=== PATIENT | female | born 1980 | race African-American/Black ===

== ENCOUNTER → 2017-06-26 | Outpatient (CLI) | payer BC, OTHER ==
--- NOTE | 2017-06-26 08:44 | XR ---
EXAMINATION TYPE: XR chest 2V DATE OF EXAM: 06/26/2017 COMPARISON: 06/24/2013 HISTORY: Chest pain TECHNIQUE: Frontal and lateral views of the chest are obtained. FINDINGS: There is no focal air space opacity. No evidence for pneumothorax. No pleural effusion. The cardiac silhouette size is within normal limits. The osseous structures are grossly intact. IMPRESSION: 1. No acute cardiopulmonary process.
[2017-06-26 09:13] LABS: HCT 36.5 % (34.0-46.0); HGB 11.7 gm/dL (11.4-16.0); Hypochromasia Slight; MCH 28.1 pg (25.0-35.0); MCV 87.7 fL (80.0-100.0); Mean Platelet Volume 7.9; Platelet Count 293 k/uL (150-450); RBC 4.17 m/uL (3.80-5.40); RDW 13.7 % (11.5-15.5); WBC 5.7 k/uL (3.8-10.6)
[2017-06-26 09:24] LABS: ALT 31 U/L (9-52); AST 22 U/L (14-36); Albumin 4.2 g/dL (3.5-5.0); Alkaline Phosphatase 40 U/L (38-126); Anion Gap 11 mmol/L; Blood Urea Nitrogen 11 mg/dL (7-17); Calcium 9.7 mg/dL (8.4-10.2); Carbon Dioxide 27 mmol/L (22-30); Chloride 104 mmol/L (98-107); Cholesterol 182 mg/dL (<200); Glucose 91 mg/dL (74-99); HDL Cholesterol 89 mg/dL (40-60); LDL Cholesterol,Calculated 75 mg/dL (0-99); Sodium 142 mmol/L (137-145); Total Bilirubin 0.8 mg/dL (0.2-1.3); Total Protein 7.5 g/dL (6.3-8.2); Triglycerides 92 mg/dL (<150)
[2017-06-26 09:38] LABS: T4, Free (Free Thyroxine) 0.83 ng/dL (0.78-2.19)
== END | disposition home or self-care (01) ==
LOC: RADXRMAIN 08:08
PROVIDERS: ATTEND Internal Medicine
DX: I11.9 Hypertensive heart disease without heart failure (principal); R10.9 Unspecified abdominal pain; R19.7 Diarrhea, unspecified; E78.2 Mixed hyperlipidemia; Z00.00 Encounter for general adult medical examination without abnormal findings
CPT/HCPCS: 36415; 71046; 80053; 80061; 82272; 84439; 84443; 85027

== ENCOUNTER → 2018-09-09 | Outpatient (CLI) | payer BC, OTHER ==
--- NOTE | 2018-09-09 11:25 | XR ---
EXAMINATION TYPE: XR chest 2V DATE OF EXAM: 09/09/2018 COMPARISON: 06/26/2017 TECHNIQUE: PA and lateral views submitted. HISTORY: Wellness check FINDINGS: The lungs are clear and there is no pneumothorax, pleural effusion, or focal pneumonia. No overt fa ilure. Biapical pleural thickening. Surgical clips in the gallbladder fossa. IMPRESSION: 1. No acute process.
[2018-09-09 11:46] LABS: HCT 38.7 % (34.0-46.0); HGB 12.5 gm/dL (11.4-16.0); MCH 28.1 pg (25.0-35.0); MCHC 32.3 g/dL (31.0-37.0); MCV 86.9 fL (80.0-100.0); Mean Platelet Volume 6.9; Platelet Count 299 k/uL (150-450); RBC 4.45 m/uL (3.80-5.40); WBC 7.5 k/uL (3.8-10.6)
[2018-09-09 12:04] LABS: ALT 23 U/L (9-52); AST 24 U/L (14-36); Albumin 4.4 g/dL (3.5-5.0); Alkaline Phosphatase 56 U/L (38-126); Anion Gap 9 mmol/L; Blood Urea Nitrogen 12 mg/dL (7-17); Calcium 9.8 mg/dL (8.4-10.2); Carbon Dioxide 26 mmol/L (22-30); Chloride 105 mmol/L (98-107); Cholesterol 176 mg/dL (<200); Glucose 86 mg/dL (74-99); HDL Cholesterol 87 mg/dL (40-60); LDL Cholesterol,Calculated 70 mg/dL (0-99); Potassium 4.1 mmol/L (3.5-5.1); Sodium 140 mmol/L (137-145); Total Bilirubin 1.3 mg/dL (0.2-1.3); Total Protein 7.9 g/dL (6.3-8.2); Triglycerides 95 mg/dL (<150)
[2018-09-09 12:07] LABS: Appearance,Urine Clear (Clear); Bacteria,Urine Rare /hpf; Bilirubin,Urine Negative (Negative); Blood,Urine Small (Negative); Color,Urine Yellow; Glucose,Urine (UA) Negative (Negative); Ketones,Urine Negative (Negative); Leukocyte Esterase,Urine Negative (Negative); Mucus,Urine Rare /hpf; Nitrite,Urine Negative (Negative); Protein,Urine Negative (Negative); RBC,Urine 5 /hpf (0-5); Specific Gravity,Urine 1.021 (1.001-1.035); Squamous Epithelial Cell,Urine 4 /hpf (0-4); Urobilinogen,Urine <2.0 mg/dL (<2.0); WBC,Urine 1 /hpf (0-5)
[2018-09-09 12:20] LABS: T4, Free (Free Thyroxine) 0.82 ng/dL (0.78-2.19)
[2018-09-09 17:16] LABS: Hemoglobin A1C 5.8 % (4.0-6.0)
== END | disposition home or self-care (01) ==
LOC: RADXRMAIN 09:51
PROVIDERS: ATTEND Internal Medicine
DX: Z00.00 Encounter for general adult medical examination without abnormal findings (principal); E78.2 Mixed hyperlipidemia; R05 Cough; R73.9 Hyperglycemia, unspecified; R35.0 Frequency of micturition
CPT/HCPCS: 36415; 71046; 80053; 80061; 81001; 83036; 84439; 84443; 85027

== ENCOUNTER → 2019-02-24 | Outpatient (CLI) | payer BC ==
--- NOTE | 2019-02-25 11:15 | US ---
EXAMINATION TYPE: US thyroid st tissue head/neck DATE OF EXAM: 02/24/2019 COMPARISON: NONE CLINICAL HISTORY: E04.9 goiter. Swelling GLAND SIZE: Right Lobe: 5.2 x 1.4 x 1.3 cm Overall Parenchyma: homogenous Left Lobe: 4.9 x 1.5 x 1.6 cm Overall Parenchyma: homogeneous Isthmus Thickness: .4 cm NODULES RIGHT: # of nodules measured on right: 0 LEFT: # of nodules measured on left: 0 ISTHMUS: # of nodules measured in the isthmus: 0 Bilateral neck scanned, no evidence of lymphadenopathy. No hypervascular flow throughout the thyroid gland. IMPRESSION: Mild thyromegaly in an overall homogeneous thyroid gland without hypervascularity.
== END | disposition home or self-care (01) ==
LOC: RADUSWWP 16:20
PROVIDERS: ATTEND Family Medicine
DX: E07.9 Disorder of thyroid, unspecified (principal)
CPT/HCPCS: 76536

== ENCOUNTER → 2021-02-14 | Outpatient (CLI) | payer OTHER ==
--- NOTE | 2021-02-16 09:10 | MM ---
Reason for exam: screening (asymptomatic). Baseline mammogram. History: Taking hormonal contraceptives for 3 years. Physical Findings: Nurse did not find any significant physical abnormalities on exam. MG Screening Mammo w CAD Bilateral CC and MLO view(s) were taken. The breast tissue is heterogeneously dense. This may lower the sensitivity of mammography. There is no discrete abnormality. ASSESSMENT: Negative, BI-RAD 1 RECOMMENDATION: Routine screening mammogram of both breasts in 1 year.
== END | disposition home or self-care (01) ==
LOC: RADMAMWWP 08:27
PROVIDERS: ATTEND Family Medicine
DX: Z12.31 Encounter for screening mammogram for malignant neoplasm of breast (principal)
CPT/HCPCS: 77067

== ENCOUNTER → 2021-11-04 | Outpatient (CLI) | payer OTHER ==
--- NOTE | 2021-11-04 11:52 | US ---
EXAMINATION TYPE: US pelvic complete DATE OF EXAM: 11/04/2021 COMPARISON: NONE CLINICAL HISTORY: R10.2 PELVIC PAIN. Hx of fibroid. Patient states she has back pain x 1 year and pro gressively getting worse. She also states she has right sided pelvic pain. TECHNIQUE: . Transabdominal sonographic images of the pelvis were acquired. Transvaginal sonographi c images were medically necessary to better assess the following anatomy: Uterus Date of LMP: 2-3 weeks ago EXAM MEASUREMENTS: Uterus: 12.6 x 9.8 x 9.1 cm Endometrial Stripe: Not well visualized cm Right Ovary: 2.5 x 2.2 x 2.3 cm Left Ovary: 3.5 x 2.5 x 1.5 cm 1. Uterus: Retroverted 2 fibroids seen. Largest takes up most of uterus measuring 8.7 x 6.3 x 5.8 cm located on the right side. 2. Endometrium: Not well visualized due to fibroid 3. Right Ovary: wnl 4. Left Ovary: wnl 5. Bilateral Adnexa: wnl 6. Posterior cul-de-sac: wnl IUD is present in uterus, unsure if in correct spot due to fibroid. IMPRESSION: 1. Large uterine fibroids. 2. There is an IUD present within the uterus. Positioning is somewhat unclear.
== END | disposition home or self-care (01) ==
LOC: RADUSWWP 09:40
PROVIDERS: ATTEND Internal Medicine Geriatric Medicine
DX: D25.9 Leiomyoma of uterus, unspecified (principal); Z97.5 Presence of (intrauterine) contraceptive device
CPT/HCPCS: 76856

== ENCOUNTER → 2021-12-09 | Outpatient (CLI) | payer OTHER ==
[2021-12-09 12:14] LABS: ALT 24 U/L (4-34); AST 35 U/L (14-36); African American GFR (CKD) >90 (>60 ml/min/1.73 sqM); Albumin 4.8 g/dL (3.5-5.0); Albumin/Globulin Ratio 1.3; Alkaline Phosphatase 54 U/L (38-126); Anion Gap 12 mmol/L; Blood Urea Nitrogen 12 mg/dL (7-17); Calcium 9.7 mg/dL (8.4-10.2); Carbon Dioxide 23 mmol/L (22-30); Chloride 105 mmol/L (98-107); Globulin 3.8 g/dL; Glucose 67 mg/dL (74-99); Non-African American GFR(CKD) >90 (>60 ml/min/1.73 sqM); Sodium 140 mmol/L (137-145); Total Bilirubin 0.7 mg/dL (0.2-1.3); Total Protein 8.6 g/dL (6.3-8.2)
[2021-12-09 12:17] LABS: Basophils # (A) 0.1 k/uL (0-0.2); Basophils % (A) 1 %; Eosinophils # (A) 0.1 k/uL (0-0.7); Eosinophils % (A) 2 %; HCT 40.9 % (34.0-46.0); HGB 13.3 gm/dL (11.4-16.0); Lymphocytes # (A) 1.9 k/uL (1.0-4.8); Lymphocytes % (A) 29 %; MCH 29.5 pg (25.0-35.0); MCHC 32.6 g/dL (31.0-37.0); MCV 90.4 fL (80.0-100.0); Mean Platelet Volume 10.5; Monocytes # (A) 0.4 k/uL (0-1.0); Monocytes % (A) 6 %; Neutrophils # (A) 3.8 k/uL (1.3-7.7); Neutrophils % (A) 60 %; Platelet Count 255 k/uL (150-450); RBC 4.52 m/uL (3.80-5.40); RDW 12.4 % (11.5-15.5); WBC 6.3 k/uL (3.8-10.6)
[2021-12-09 12:30] LABS: T4, Free (Free Thyroxine) 0.96 ng/dL (0.78-2.19)
== END | disposition home or self-care (01) ==
LOC: LABWHC1 11:08
PROVIDERS: ATTEND Family Medicine
DX: R53.83 Other fatigue (principal)
CPT/HCPCS: 36415; 80053; 82306; 84439; 84443; 85025

== ENCOUNTER → 2022-10-23 | Outpatient (CLI) | payer OTHER ==
[2022-10-23 15:55] LABS: ALT 19 U/L (8-44); AST 19 U/L (13-35); African American GFR (CKD) 106.1 (60.0-200.0); Albumin 4.5 g/dL (3.8-4.9); Albumin/Globulin Ratio 1.67 (1.60-3.17); Alkaline Phosphatase 46 U/L (41-126); C Reactive Protein <0.30 mg/dL (0.00-0.80); Calcium 9.5 mg/dL (8.7-10.3); Carbon Dioxide 23.5 mmol/L (20.0-27.5); Chloride 105 mmol/L (96-109); Chol/HDL Ratio 2.23 Ratio; Globulin 2.7 g/dL (1.6-3.3); Glucose 89 mg/dL (70-110); Non-African American GFR(CKD) 91.6 (60.0-200.0); Potassium 4.1 mmol/L (3.5-5.5); Sodium 140 mmol/L (135-145); Total Protein 7.2 g/dL (6.2-8.2); Uric Acid 5.9 mg/dL (2.9-7.7)
[2022-10-23 15:56] LABS: Erythrocyte Sedimentation Rate 18 mm/Hr (0-20)
[2022-10-23 17:17] LABS: Thyroid Peroxidase Antibodies <9.0 U/mL (0.0-33.0)
[2022-10-23 18:45] LABS: Basophils # (A) 0.04 X 10*3/uL (0.00-0.10); Basophils % (A) 0.7 %; Eosinophils # (A) 0.13 X 10*3/uL (0.04-0.35); Eosinophils % (A) 2.1 %; HCT 36.8 % (37.2-46.3); HGB 11.6 g/dL (12.0-15.0); Immature Grans, Automated 0.2 %; Lymphocytes # (A) 2.94 X 10*3/uL (0.90-5.00); Lymphocytes % (A) 48.3 %; MCH 28.4 pg (27.0-32.0); MCHC 31.5 g/dL (32.0-37.0); Mean Platelet Volume 13.1 fL (9.5-12.2); Monocytes # (A) 0.39 X 10*3/uL (0.20-1.00); Monocytes % (A) 6.4 %; NRBC Per 100 WBC 0 /100 WBCS (0.0-0.0); Neutrophils # (A) 2.58 X 10*3/uL (1.80-7.70); Neutrophils % (A) 42.3 %; Platelet Count 265 X 10*3/uL (140-440); RBC 4.09 X 10*6/uL (4.10-5.20); RDW 12.5 % (11.5-14.5); WBC 6.09 X 10*3/uL (4.50-10.00)
[2022-10-23 22:18] LABS: Cyclic Citrull Pep IgG Unit <1.5 U/mL; Cyclic Citrullinated Pep IgG NEGATIVE (NEGATIVE)
[2022-10-24 08:06] LABS: Lyme IgG/IgM 0.37 Index
[2022-10-24 15:16] LABS: ANA Pattern Homogeneous
== END | disposition home or self-care (01) ==
LOC: LABWHC1 07:56
PROVIDERS: ATTEND Family Medicine
DX: Z00.01 Encounter for general adult medical examination with abnormal findings (principal); M13.0 Polyarthritis, unspecified; E04.9 Nontoxic goiter, unspecified; E55.9 Vitamin D deficiency, unspecified; E53.8 Deficiency of other specified B group vitamins
CPT/HCPCS: 36415; 80053; 80061; 82306; 82607; 84439; 84443; 84550; 85025; 85652; 86038; 86039; 86140; 86200; 86376; 86618

== ENCOUNTER → 2022-11-13 | Outpatient (CLI) | payer OTHER ==
--- NOTE | 2022-11-13 08:06 | US ---
EXAMINATION TYPE: US thyroid st tissue head/neck DATE OF EXAM: 11/13/2022 COMPARISON: US CLINICAL INDICATION: Female, 42 years old with history of E04.9 NONTOXIC GOITER; Goiter GLAND SIZE: Right Lobe: 5.7 x 1.6 x 2.0 cm Overall Parenchyma: homogenous Left Lobe: 5.5 x 1.6 x 1.6 cm Overall Parenchyma: homogeneous Isthmus Thickness: 0.4 cm NODULES RIGHT: # of nodules measured on right: 0 LEFT: # of nodules measured on left: 0 ISTHMUS: # of nodules measured in the isthmus: 0 Bilateral neck scanned, no evidence of lymphadenopathy. Thyroid enlarged, no evidence of nodules at t his time. IMPRESSION: Thyroidomegaly without evidence for distinct solid or cystic nodule.
== END | disposition home or self-care (01) ==
LOC: RADUSWWP 07:04
PROVIDERS: ATTEND Family Medicine
DX: E04.9 Nontoxic goiter, unspecified (principal)
CPT/HCPCS: 76536

== ENCOUNTER → 2023-05-18 | Outpatient (CLI) | payer OTHER ==
--- NOTE | 2023-05-21 16:15 | MM ---
Reason for Exam: Screening (asymptomatic). Last mammogram was performed 2 year(s) and 3 month(s) ago. Patient History: Menarche at age 12. First Full-Term at age 22. Patient has history of breast feeding. Currently using Hormonal Contraceptives, for 3 years. Risk Values: Mayra 5 year model risk: 0.6%. NCI Lifetime model risk: 9.6%. Prior Study Comparison: 02/14/2021 Bilateral Screening Mammogram, [facility]. Tissue Density: The breast tissue is heterogeneously dense. This may lower the sensitivity of mammography. Findings: Analyzed By CAD. Pattern appears symmetrical and stable No suspicious groups of microcalcifications, spiculated or lobular masses, architectural distortion or other secondary signs of malignancy are mammographically apparent. Overall Assessment: Benign, BI-RAD 2 Management: Screening Mammogram of both breasts in 1 year. A negative mammogram report should not preclude additional follow up of suspicious palpable abnormalities. Patient should continue monthly self breast exam. A clinical breast exam by your physician is recommended on an annual basis and results should be correlated with mammographic findings. Electronically signed and approved by: Asael David D.O. Radiologis
== END | disposition home or self-care (01) ==
LOC: RADMAMWWP 12:49
PROVIDERS: ATTEND Family Medicine
DX: Z12.31 Encounter for screening mammogram for malignant neoplasm of breast (principal)
CPT/HCPCS: 77063; 77067

== ENCOUNTER → 2024-07-04 | Outpatient (CLI) | payer BC ==
--- NOTE | 2024-07-04 16:42 | CT ---
EXAMINATION TYPE: CT abdomen pelvis w con DATE OF EXAM: 07/04/2024 3:30 PM COMPARISON: None. 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 TECHNIQUE: Axial images were obtained from above the diaphragm to the pubic rami in the axial plane a t 5 mm thick sections. Reconstructed images are reviewed on the computer in the coronal plane. CONTRAST: 100ml mL of Isovue 300. Study performed with Oral Contrast DLP: 637.8 mGycm, Automated exposure control for dose reduction was used. FINDINGS: Limited CT sections are obtained the lung bases. The lung bases are clear. CT ABDOMEN: Liver: Normal Spleen: Normal Pancreas: Normal Adrenal glands: The adrenal glands are normal. Gallbladder: Normal Kidneys: No masses are evident. No hydronephrosis is present. No cysts are present. Delayed images were obtained through the kidneys, which remain unremarkable. Aorta: Normal celiac axis and superior mesenteric artery appear normal. Inferior mesenteric artery ma y be patent. Inferior vena cava: Normal. CT PELVIS: Loops of bowel within the abdomen and pelvis are normal. Contrast extends to the distal small bowel. Colon appears unremarkable without contrast. There are loops of bowel which are incompletely diste nded or lack oral contrast limiting their evaluation. Appendix: Normal as visualized. Urinary bladder: Normal Genitourinary structures: Uterus and ovaries are not identified. Osseous structures: No suspicious lytic or sclerotic lesions. IMPRESSION: 1. No suspicious changes to suggest acute diverticulitis. [facility], Workstation: [id number], 07/04/2024 4:40 PM
== END | disposition home or self-care (01) ==
LOC: RADCTMAIN 13:24
PROVIDERS: ATTEND Family Medicine
DX: K57.32 Diverticulitis of large intestine without perforation or abscess without bleeding (principal)
CPT/HCPCS: 74177; Q9967

== ENCOUNTER 2024-09-26 13:01 | Day surgery (SDC) | payer BC ==
[2024-09-26] MEDS: IV FLUID CONTINUATION 1,000 ML IV ONE ×2 (14:08→14:54)
[2024-09-26] MEDS: LACTATED RINGERS 1,000 ML IV SCH (14:08)
[2024-09-26 14:09] VITALS: TEMP 98.1
[2024-09-26] MEDS ORDERED: PROPOFOL 10 MG/ML 20 ML VIAL IV ONE (14:58)
--- NOTE | 2024-09-26 15:10 | P.PCN ---
Date of Procedure: 09/26/24 Procedure(s) Performed: BRIEF HISTORY: Patient is a 44-year-old pleasant female scheduled for an elective colonoscopy as a part of evaluation intermittent lower abdominal pain for the last few months duration. PROCEDURE PERFORMED: Colonoscopy. PREOPERATIVE DIAGNOSIS: Intermittent lower abdominal pain. IV sedation per Anesthesia. PROCEDURE: After informed consent was obtained, the patient, was brought into the endoscopy unit. IV sedation was administered by Anesthesia under continuous monitoring. Digital rectal examination was normal. Initially the Olympus CF-160 flexible video colonoscope was then inserted in the rectum, gradually advanced into the cecum without any difficulty. Careful examination was performed as the scope was gradually being withdrawn. Ileocecal valve and the appendiceal orifice were visualized and appeared normal. Prep was excellent. Terminal ileum was intubated and 10 cm visualized and appeared normal mucosa of the cecum, ascending colon, transverse colon, descending colon, sigmoid colon, and rectum appeared normal. Retroflexion was performed in the rectum and no lesions were seen. The patient tolerated the procedure well. IMPRESSION: Normal-appearing colon from rectum to cecum with no evidence of colorectal neoplasia. RECOMMENDATIONS: Findings of this examination were discussed with the patient as well as her family.. She was advised to start on a high-fiber diet and take fiber supplements on regular basis. Recommend repeat screening colonoscopy in 10 years.
[2024-09-26 15:44] VITALS: BP 145/93; PULSE 79; RESP 20
== END 2024-09-26 16:00 | disposition home or self-care (01) ==
LOC: ORWHC2ENDO 13:01
PROVIDERS: ATTEND Internal Medicine Gastroenterology
DX: Z12.11 Encounter for screening for malignant neoplasm of colon (principal)
CPT/HCPCS: 45378; J2704

== ENCOUNTER → 2024-10-03 | Outpatient (CLI) | payer BC ==
--- NOTE | 2024-10-03 11:44 | MM ---
Reason for Exam: Screening (asymptomatic). Last mammogram was performed 1 year(s) and 5 month(s) ago. Patient History: Menarche at age 12. First Full-Term at age 22. Hysterectomy at age 42. Patient has history of breast feeding. Patient used Hormonal Contraceptives for 3 years. Risk Values: Mayra 5 year model risk: 0.8%. NCI Lifetime model risk: 9.4%. Prior Study Comparison: 02/14/2021 Bilateral Screening Mammogram, [facility]. 05/18/2023 Bilateral MG 3D screening mammo w/cad, [facility]. Tissue Density: The breasts are heterogeneously dense, which may obscure small masses. Findings: Analyzed By CAD. There is no suspicious group of microcalcifications or new suspicious mass in either breast. Overall Assessment: Negative, BI-RAD 1 Management: Screening Mammogram of both breasts in 1 year. . Patient should continue monthly self-breast exams. A clinical breast exam by your physician is recommended on an annual basis. This exam should not preclude additional follow-up of suspicious palpable abnormalities. Note on Mayra scores and lifetime risk: 1. A Mayra score greater than 3% is considered moderate risk. If this is the case, consider specialist referral to assess eligibility for a risk reducing agent. 2. If overall lifetime risk for the development of breast cancer is 20% or higher, the patient may qualify for future screening with alternating mammogram and breast MRI. [facility], , 10/03/2024 11:42 AM. Electronically signed and approved by: Dakota Camacho M.D.
== END | disposition home or self-care (01) ==
LOC: RADMAMWWP 10:54
PROVIDERS: ATTEND Family Medicine
DX: Z12.31 Encounter for screening mammogram for malignant neoplasm of breast (principal); R92.333 Mammographic heterogeneous density, bilateral breasts; Z92.0 Personal history of contraception
CPT/HCPCS: 77063; 77067